=== PATIENT | female | born 1985 | race Caucasian/White ===

== ENCOUNTER 2018-08-06 18:13 | Emergency (ER) | payer BC ==
[2018-08-06 19:38] VITALS: BP 112/63
--- NOTE | 2018-08-06 20:31 | UC ---
[facility] HPI - History of Current Complaint Chief Complaint: UCDentalProblem Stated Complaint: ORAL COMPLAINT Time Seen by Provider: 08/06/18 20:07 Hx Obtained From: Patient Hx Last Menstrual Period: n/a Pain Intensity: 2 - Allergies/Home Medications Allergies/Adverse Reactions: Allergies Allergy/AdvReac Type Severity Reaction Status Date / Time amoxicillin Allergy Unknown Verified 08/06/18 19:29 Reaction Details peanuts Allergy Tingling, Uncoded 08/06/18 19:39 increased salivation Home Medications: Home Medications Biotin 10,000 mcg PO DAILY 08/06/18 [History Confirmed 08/06/18] Mag/Calcium Tab 1 tab PO DAILY 08/06/18 [History Confirmed 08/06/18] PMH/Surg Hx/FS Hx/Imm Hx - Surgical History Surgical History: None - Social History Alcohol Use: Occasionally Substance Use Type: None Smoking Status (MU): Never Smoked Tobacco Physical Exam Vital Signs: Initial Vital Signs Temp 98.3 F 08/06/18 19:34 Pulse 72 08/06/18 19:34 Resp 18 08/06/18 19:34 BP 112/63 08/06/18 19:34 Pulse Ox 100 08/06/18 19:34 Discharge - Discharge Plan Referrals: Ivania Montana MD [Primary Care Provider] -
== END 2018-08-06 21:14 | disposition left against medical advice (07) ==
LOC: UCCORT 18:13
DX: Z53.21 Procedure and treatment not carried out due to patient leaving prior to being seen by health care provider (principal)